=== PATIENT | male | born 1960 | race Caucasian/White ===

== ENCOUNTER 2019-11-17 09:47 | Outpatient (CLI) | payer BC, SELFPAY ==
--- NOTE | ~2019-11-17 | XR_ITS ---
XR knee LT min 4V 11/17/2019 10:19 Indication: Left knee pain Procedure: 5 views left knee Comparison: 05/29/2018 Findings: Moderate osteoarthritis of the left knee, most advanced in the medial compartment. No signi ficant joint effusion. No fracture or traumatic malalignment. Impression: 1: Moderate osteoarthritis of the left knee. Reviewed, dictated and finalized at location B. Impression: 1: Moderate osteoarthritis of the left knee.
== END 2019-11-17 09:48 | disposition home or self-care (01) ==
PROVIDERS: PCP Family Medicine; Visit Provider Orthopaedic Surgery
DX: M25.562 Pain in left knee (principal)
CPT/HCPCS: 73564

== ENCOUNTER 2019-11-25 15:40 | Outpatient (CLI) | payer BC, SELFPAY ==
--- NOTE | ~2019-11-25 | MR_ITS ---
EXAMINATION: MR knee LT wo con DATE: 11/25/2019 16:27 INDICATION: Left knee pain. TECHNIQUE: Magnetic resonance imaging (MRI) of the left knee was performed without intravenous contra st. Sequences included axial PD-weighted FS FSE, coronal PD-weighted FSE and PD-weighted FS FSE, sagi ttal PD-weighted FSE, and sagittal T2-weighted FS FSE. COMPARISON: Left knee radiographs 11/17/2019 FINDINGS: Medial compartment: There is a radial tear involving body and posterior horn of medial meniscus. There is full-thickness cartilage loss of tibial condyle involving the medial articular surface with moderate subchondral abdelrahman ma-like marrow signal intensity. There is full-thickness cartilage loss of femoral condyle involving the central, medial, and posterior articular surface with moderate subchondral edema-like marrow sign al intensity. There is extensive partial thickness cartilage loss of femoral condyle and tibial condy le. Marginal osteophytes are noted. Lateral compartment: Lateral meniscus is normal. There is shallow partial-thickness cartilage loss of femoral condyle, wor st medially. There is deep partial thickness cartilage loss of tibial condyle involving the medial ar ticular surface. Marginal osteophytes are noted. Patellofemoral compartment: There is shallow partial-thickness cartilage loss of patellar medial facet, median ridge, and lateral facet. There is shallow partial-thickness cartilage loss of trochlea, worst at the central trochlea. Marginal osteophytes are noted. Ligaments and tendons: The anterior cruciate ligament is thickened with increased signal, consistent with mucoid degeneratio n. Posterior cruciate ligament is normal. There are changes of prior sprains of medial collateral lig ament and fibular collateral ligament characterized by increased signal intensity proximally. There i s moderate patellar tendinopathy. Fluid: There is a small knee joint effusion. There is mild prepatellar bursitis and moderate superficial inf rapatellar bursitis. IMPRESSION: 1. Severe chondrosis of medial compartment, moderate chondrosis of lateral compartment, and mild cecilia drosis of patellofemoral compartment. 2. Tear of medial meniscus. 3. Small knee joint effusion. Reviewed, dictated and finalized at location A. IMPRESSION: 1. Severe chondrosis of medial compartment, moderate chondrosis of lateral comp artment, and mild chondrosis of patellofemoral compartment. 2. Tear of medial meniscus. 3. Small knee joint effusion.
== END 2019-11-25 15:41 | disposition home or self-care (01) ==
PROVIDERS: PCP Family Medicine; Visit Provider Orthopaedic Surgery
DX: M25.569 Pain in unspecified knee (principal); M22.2X2 Patellofemoral disorders, left knee; S83.242A Other tear of medial meniscus, current injury, left knee, initial encounter; M25.462 Effusion, left knee
CPT/HCPCS: 73721

== ENCOUNTER 2020-12-09 10:03 | Outpatient (CLI) | payer BC, SELFPAY ==
--- NOTE | ~2020-12-09 | CT_ITS ---
EXAMINATION:CT diagnostic chest w con DATE: 12/09/2020 10:31 INDICATION: Abnormality lung on chest radiograph. TECHNIQUE: Computed tomography (CT) of the chest was performed with 75 mL Omnipaque 350 intravenous c ontrast. Automated exposure control and iterative reconstruction technique were employed. The dose-le ngth product (DLP) was 577.96 mGy-cm. COMPARISON: None. FINDINGS: The lungs demonstrate mild atelectasis with a dependent predominance. No pleural effusion. The heart size is normal. No pericardial effusion. There are coronary artery calcifications. There is mucous in the trachea. Main pulmonary artery is enlarged, consistent pulmonary artery hypertension. There is severe lower thoracic spondylosis. There is mild chronic anterior wedging of multiple lower thoracic vertebral bodies. IMPRESSION: 1. Mild atelectasis in the lungs. Reviewed, dictated and finalized at location A.
[2020-12-09 10:24] LABS: Estimated Glomerular Filt Rate > 60
== END 2020-12-09 10:04 | disposition home or self-care (01) ==
LOC: ANHIMG 10:05
PROVIDERS: PCP Family Medicine; Visit Provider Family Medicine
DX: R91.8 Other nonspecific abnormal finding of lung field (principal); J98.11 Atelectasis
CPT/HCPCS: 71260; Q9967

== ENCOUNTER 2021-01-05 08:45 | Outpatient (CLI) | payer BC, SELFPAY ==
--- NOTE | 2021-01-05 | ECHO_ITS ---
Patient Info Name: Cole Abdalla Age: 60 years : 1960 Gender: Male Ht: 70 in Wt: 253 lbs BSA: 2.42 m2 HR: 67 bpm BP: 132 / 84 mmHg Heart Rhythm: Sinus Rhythm Technical Quality: Good Exam Date: 01/05/2021 9:10 AM Exam Location: [facility] Patient Status: Outpatient Admit Date: 01/05/2021 Staff Ordering Physician: CarolPrem MD Structural Layout Worker: Anika Diego RDCS Attending Provider: KirkPrem MD Exam Type: CA echo doppler color flow Study Info Indications I27.21 - PULMONARY ARTERY HYPERTENSION Complete two-dimensional, color flow and Doppler transthoracic echocardiogram is performed. Summary 1. Complete two-dimensional, color flow and Doppler transthoracic echocardiogram is performed. 2. Left ventricular chamber dimension is normal. 3. Left ventricular systolic function is normal, estimated at 60-65%. 4. There is no increased left ventricular wall thickness. 5. The left ventricular diastolic function is grade I diastolic dysfunction. 6. There is no aortic valve stenosis. 7. There is trace mitral valve regurgitation. 8. There is mild tricuspid valve regurgitation. 9. No pulmonary hypertension, estimated pulmonary arterial systolic pressure is 30 mmHg. Left Ventricle Left ventricular chamber dimension is normal. Left ventricular systolic function is normal, estimated at 60-65%. There is no increased left ventricular wall thickness. The left ventricular diastolic function is grade I diastolic dysfunction. Global longitudinal strain is mildly elevated at -15 %. Right Ventricle Right ventricular chamber dimension is normal. Right ventricular systolic function is normal. Left Atria Left atrial chamber dimension is mildly enlarged. Right Atria Right atrial chamber dimension is mildly enlarged. Atrial Septum Thin and hypermobile. Aortic Valve The aortic valve is trileaflet. There is no aortic valve stenosis. There is no aortic valve regurgitation. Pulmonic Valve The pulmonic valve is normal. There is trace pulmonic regurgitation. Mitral Valve The mitral valve has normal leaflets. There is trace mitral valve regurgitation. Tricuspid Valve The tricuspid valve leaflets are normal. There is mild tricuspid valve regurgitation. No pulmonary hypertension, estimated pulmonary arterial systolic pressure is 30 mmHg. Pericardium/Pleural The pericardium appears normal. There is no pericardial effusion. Inferior Vena Cava Normal inferior vena cava with >50% collapse upon inspiration consistent with normal right atrial pressure, 5 mmHg. Aorta The aortic root size at the sinus of Valsalva is normal. There is mild aortic atherosclerosis. Left Ventricular Outflow Tract Name Value Normal LVOT 2D LVOT Diameter 2.0 cm LVOT Doppler LVOT Peak Gradient 4 mmHg LVOT Mean Gradient 2 mmHg LVOT VTI 21 cm LVOT VTI/AV VTI Ratio 0.9 LVOT Stroke Volume 65 ml LVOT CO 4.5 l/min
== END 2021-01-05 08:46 | disposition home or self-care (01) ==
PROVIDERS: PCP Family Medicine; Visit Provider Family Medicine
DX: I27.21 Secondary pulmonary arterial hypertension (principal)
CPT/HCPCS: 93306